=== PATIENT | female | born 1975 | race Two or more races ===

== ENCOUNTER 2021-12-04 23:51 | Emergency (ER) | payer OTHER ==
[~2021-12-04] VITALS: Ht 152.4 cm; Wt 63.5 kg
[2021-12-05] MEDS ORDERED: KETO10TA2 PO (15:58)
== END 2021-12-05 16:43 | disposition home or self-care (01) ==
LOC: ER 23:51
DX: N83.8 Other noninflammatory disorders of ovary, fallopian tube and broad ligament (principal)

== ENCOUNTER 2021-12-20 10:52 | Emergency (ER) | payer OTHER ==
[~2021-12-20] VITALS: Ht 152.4 cm; Wt 63.5 kg
[~2021-12-20 10:52] MED LIST: KETO10TA2 PO
== END 2021-12-20 14:43 | disposition home or self-care (01) ==
LOC: ER 10:52
DX: J32.1 Chronic frontal sinusitis (principal); J06.9 Acute upper respiratory infection, unspecified

== ENCOUNTER 2022-02-19 05:49 | Day surgery (SDC) | payer OTHER | END 2022-02-19 13:20 | disposition home or self-care (01) | LOC: AMB-ENDOS 05:49 | PROVIDERS: ATTEND Surgery | DX: R19.4 Change in bowel habit (principal); K64.4 Residual hemorrhoidal skin tags; R19.09 Other intra-abdominal and pelvic swelling, mass and lump; R93.5 Abnormal findings on diagnostic imaging of other abdominal regions, including retroperitoneum; Z88.8 Allergy status to other drugs, medicaments and biological substances; Z20.822 Contact with and (suspected) exposure to COVID-19 ==

== ENCOUNTER 2022-03-19 07:07 | Day surgery (SDC) | payer OTHER ==
[~2022-03-19] VITALS: Ht 152.4 cm; Wt 63.5 kg
== END 2022-03-19 20:55 | disposition home or self-care (01) ==
LOC: O/R 07:07 → CIR.AMB 07:07 → SURG 07:07 → EDSTATUS 07:15 → SURG 07:15 → O/R 20:55 → CIR.AMB 20:55
PROVIDERS: ATTEND Obstetrics & Gynecology Gynecologic Oncology
DX: N83.8 Other noninflammatory disorders of ovary, fallopian tube and broad ligament (principal); Z20.822 Contact with and (suspected) exposure to COVID-19; Z88.8 Allergy status to other drugs, medicaments and biological substances; Z86.16 Personal history of COVID-19; K21.9 Gastro-esophageal reflux disease without esophagitis; M19.90 Unspecified osteoarthritis, unspecified site

== ENCOUNTER 2022-04-12 19:30 | Emergency (ER) | payer OTHER ==
[~2022-04-12] VITALS: Ht 152.4 cm; Wt 67.6 kg
[2022-04-12] MEDS ORDERED: PANADOL (20:20)
== END 2022-04-13 | disposition home or self-care (01) ==
LOC: ER 19:30
DX: A49.3 Mycoplasma infection, unspecified site (principal); R10.2 Pelvic and perineal pain; Z88.8 Allergy status to other drugs, medicaments and biological substances; Z20.822 Contact with and (suspected) exposure to COVID-19